=== PATIENT | female | born 1935 | race Caucasian/White ===

== ENCOUNTER 2017-05-10 20:32 | Inpatient (IN) | payer MEDICARE ==
[~2017-05-10] VITALS: Ht 157.5 cm; Wt 90.7 kg
[~2017-05-10 20:32] MED LIST: ALBUTEROL2.5 MG/3 M INH; ALLOPURINOL100 MG; ALLOPURINOL300 MG PO; AMOX TR-K CLV1 EAC1 PO; ASPIRIN BUFFER325 MG PO; ASPIRIN EC325 MG; ATENOLOL100 MG PO; ELIQUIS2.5 MG PO; FLUTICASONE PRO16 GM NAS; GLUCOSAMINE1000 MG; ISOSORBIDE MONO30 MG PO; ISOSORBIDE MONO60 MG PO; LASIX40 MG PO; LISINOPRIL20 MG PO; METOPROLOL SUC100 MG PO; POTASSIUM CHLO10 MEQ; POTASSIUM CHLO20 ME2 PO; PREDNISONE20 MG PO; PROVENTIL HFA6.7 GM INH; SYMBICORT 16010.2 GM PO; TRAZODONE HCL50 MG PO; TRIAMTERENE-HC1 EAC1; VENTOLIN HFA18 GM INH; VITAMIN D5000 UNIT; WARFARIN SODIUM5 MG PO; XARELTO10 MG PO
--- NOTE | 2017-05-11 01:48 | NUR ---
PT ADMITTED TO ROOM 123 FROM ED AT 0110. ALERT AND ORIENTATED. DENIES NAUSEA AT THIS TIME, NOR PAIN. THOUGHT SHE HAD HEART ISSUES, CAME TO ER, TO FIND OUT BUT IT WAS HER GALLBLADDER BOTHERING HER. CALL LIGHT WITHIN REACH.
--- NOTE | 2017-05-11 02:30 | NUR ---
PT IS AWAKE IN BED AND STATES SHE HAS NO PAIN OR NAUSEA AT THIS TIME. SHE IS ON CONTINOUS PULSEOX AND ON ROOM AIR AT THIS TIME. PT IS NPO AND GIVEN ORAL SWABS FOR COMFORT. EVENING MEDICATIONS GIVEN AND FLAGYL STARTED PT MAY NEED OXYGEN TONIGHT, DID NOT WANT TO USE CPAP. PT HAS NO FURTHER REQUESTS AT THIS TIME.
--- NOTE | 2017-05-11 03:26 | NUR ---
PT IV ALARM SOUNDING. CORRECTED, PT REQUESTED TO USE THE BATHROOM. HAD BEEN COUGHING, HAD STRESS INCONT. WEARS A PAD IN HER UNDERWEAR FOR STRESS INCONT. CURRENTLY SITTING ON EDGE OF BED.
--- NOTE | 2017-05-11 06:05 | NUR ---
ASSESSED PT AND HELPED HER TO RESTROOM, URINE SAMPLE OBTAINED AND SUBMITED TO LAB. DR MILLARD ARRIVED AND IS WITH PT AT THIS TIME.
--- NOTE | 2017-05-11 08:30 | NUR ---
PATIENT SITTING UP ON EDGE OF BED WITH DAUGHTER IN ROOM. HANDS AND FACE WASHED. NO OTHER NEEDS AT THIS TIME.
--- NOTE | 2017-05-11 09:00 | NUR ---
PATIENT TO BATHROOM TO SHOWER WITH STAND BY ASSIST. ORAL AND SKIN CARE DONE. LINENS CHANGED. PATIENT SITTING UP IN CHAIR WITH FEET ELEVATED. PATIENT STATES THAT HER LEGS LOOK PUFFY. RN NOTIFIED. CALL BUTTON IN REACH. NO OTHER NEEDS AT THIS TIME.
--- NOTE | 2017-05-11 10:00 | NUR ---
PATIENT REPORTS SWELLING IN ANKLES, NOTED 1+ EDMEMA R>L. DISCUSSED WITH PATIENT CONCERNS WITH MEDICAITONS, AND UPCOMING SURGERY. NOTIFIED DR. GILBERT OF PATIENT'S EDEMA IN [place]. NEW ORDERS TO DECREASE IV FLUIDS TO 75ML/HR. DR. MILLARD CALLED AND NOTIFIED NURSE INR 1.7 UNCHANGED FROM YESTERDAY'S VALUE. NEW PLAN FOR PATIENT TO BE ON CLEAR LIQUIDS, AND TO NOTIFY SURGERY TO ADD PATIENT TO FOLLOW FOR LAP. DASILVA FOR TOMORROW. NOTIFIED SURGERY STAFF AND SPOKE WITH VERONIQUE. CHARGE NURSE, PATIENT, AND DR. GILBERT UPDATED WITH SURGERY PLAN. ORDERED PATIENT CLEAR LIQUID TRAY.
[2017-05-11] MEDS ORDERED: LISINOPRIL40 MG PO (11:55)
[2017-05-11] MEDS ORDERED: MAG-OXIDE400 MG PO (12:00)
--- NOTE | 2017-05-11 12:03 | NUR ---
MED REC COMPLETE WITH [facility] REFILL HISTORY.
--- NOTE | 2017-05-11 13:00 | NUR ---
PATIENT RESTING IN BED WITH EYES CLOSED.
--- NOTE | 2017-05-11 13:30 | NUR ---
PATIENT RESTING IN BED. FAMILY IN R0OM. NO NEEDS AT THIS TIME. CALL BUTTON IN REACH.
--- NOTE | 2017-05-11 16:30 | NUR ---
PATIENT REPORTS NAUSEA, ADMINISTERED 4MG IV ZOFRAN. OXYGEN SATURATION 96% 3L NC. PULSE 92 RR 18. PATIENT STATES " I AM JUST FEELING PRETTY POOR THIS EVENING".
--- NOTE | 2017-05-11 17:00 | NUR ---
RN IN ROOM WITH PATIENT. NO NEEDS AT THIS TIME.
--- NOTE | 2017-05-11 17:30 | NUR ---
ADMINISTERED 5MG OF METOPROL IV, P101. PATIENT RESTING IN BED. INFUSED ON PUMP OVER 10 MINUTES. TOLERATED WELL. DISCUSSED NEED FOR PATIENT GETTING REST. AND SURGERY TOMORROW.
--- NOTE | 2017-05-11 18:04 | NUR ---
PATIENT RESTING IN BED WITH EYES CLOSED. CALL BUTTON IN REACH. FRESH ICE WATER GIVEN. NO OTHER NEEDS AT THIS TIME.
--- NOTE | 2017-05-11 18:45 | NUR ---
PATIENT HAS EXTENSIVE CARDIAC HX. IT WAS FOUND PATIENT DID NOT LOPRESSOR AT HS LAST NIGHT, HAS BEEN TACHY THROUGHOUT DAY. ADMINISTERED IV LOPRESSOR X2 TO CONTROL RATE. PO LOPRESSOR DUE AT HS. PLAN FOR PATIENT TO HAVE LAP BROWN TOMORROW AT NOON. PATIENT AND FAMILY AWARE AND REQUEST TO PRESENT WHEN DR. MILLARD DISCUSSED SURGERY AND OPERATION PLAN. SON IS POA. PATIENT PAIN WELL CONTROLLED. NAUSEA X1, ADMINISTERED ZOFRAN. REQUESTING SLEEPING MEDICAITON FOR TONIGHT.
--- NOTE | 2017-05-11 19:07 | NUR ---
RECEIVED REPORT FROM RN. PATIENT RESTING COMFORTABLY IN BED, BREATHING IS EVEN AND UNLABORED ON 3L O2. DENIES NEEDS AT THIS TIME. FAMILY AT BEDSIDE, CALL LIGHT WITHIN REACH.
--- NOTE | 2017-05-11 20:16 | NUR ---
PATIENT CALLED AND REQUESTED MEDCIATION FOR AN "UPSET STOMACH". PATIENT GIVEN PRN NAUSEA MEDICATION PER ORDER. PATIENT DENIES ANY FURTHER NEEDS. FAMILY AT THE BEDSIDE. NO FURTHER NEEDS AT THIS TIME. CALL LIGHT IN REACH.
--- NOTE | 2017-05-11 20:29 | NUR ---
PATIENT RESTING IN BED, BREATHING APPEARS EASY AND UNLABORED. REPORTS 6/10 PAIN IN ABD. PATIENT STATES "I FEEL LIKE I AM HAVING A HARD TIME BREATHING." RESPIRATIONS ARE EASY AND UNLABORED, PATIENT REFUSES BREATHING TREATMENT. O2 SATURATION IS 97% ON 3L O2. PATIENT ALSO REPORTS NAUSEA. EDUCATED PATIENT ABOUT THE ONSET OF ZOFRAN. WILL ADMINISTER MEDICATIONS ONCE PATIENT IS NO LONGER NAUSEOUS. DENIES NEEDS AT THIS TIME. ASSESSMENT DONE, CALL LIGHT WITHIN REACH.
--- NOTE | 2017-05-11 20:57 | NUR ---
PATIENT CONTINUES TO FEEL SHORT OF BREATH. ASSESSED LUNGS, CRACKLES HEARD. MANUAL BLOOD PRESSURE OF 170/90 NOTED. BREATHING TREATMENT ADMINISTERED PER RT DAI, ADMINISTERED PAIN MEDICATION FOR 6/10 PAIN IN ABD. PATIENT RESTING IN BED AND STATES "I AM FEELING A LITTLE BETTER." PATIENT ALSO PUT ON BIPAP, EDUCATION GIVEN REGARDING THE BENEFITS OF BIPAP. DENIES FURTHER NEEDS AT THIS TIME. CALL LIGHT WITHIN REACH.
--- NOTE | 2017-05-11 22:59 | NUR ---
UPDATED DR. MILLARD REGARDING PATIENT'S FLUID STATUS. EXPRESSED CONCERN ABOUT CRACKLES IN BASES OF LUNGS INCREASED BLOOD PRESSURE OF 170/92, AND PATIENT EXPRESSING INCREASED WORK OF BREATHING. ONE TIME ORDER 20 MG IV LASIX ORDERED, DECREASING FLUIDS TO 50 ML/HR.
--- NOTE | 2017-05-11 23:42 | NUR ---
ADMINISTERED X1 DOSE OF [address] MILLARD. PATIENT RESTING COMFORTABLY IN BED, BREATHING IS EVEN AND UNLABORED. O2 SATURATION IS 98% ON BIPAP. PATIENT STATES "I AM STARTING TO FEEL A LOT BETTER." REPORTS 4/10 PAIN IN ABD AND STATES "MY PAIN IN FINE." DENIES NEEDS AT THIS TIME. CALL LIGHT WITHIN REACH.
--- NOTE | 2017-05-12 00:15 | NUR ---
ASSISTED PATIENT TO BATHROOM WITH SBA. ONCE BACK IN BED, PATIENT RESTING COMFORTABLY, BREATHING IS EVEN AND UNLABORED. DENIES FURTHER NEEDS. CALL LIGHT WITHIN REACH.
--- NOTE | 2017-05-12 01:30 | NUR ---
1 PERSON ASSIST TO THE BATHROOM AND BACK TO BED. BIPAP WAS ADJUSTED BY RT DAI DUE TO PATIENT C/O LEAKING. CALL LIGHT WITHIN REACH.
--- NOTE | 2017-05-12 02:10 | NUR ---
PATIENT RESTING COMFORTABLY IN BED, BREATHING IS EVEN AND UNLABORED. O2 SATURATION IS 97% ON BIPAP, 30% O2. FLACC SCORE OF 0. PATIENT APPEARS COMFORTABLE. CALL LIGHT WITHIN REACH.
--- NOTE | 2017-05-12 03:15 | NUR ---
ASSISTED PATIENT TO BATHROOM WITH SBA. ONCE BACK IN BED, REPORTS 4/10 PAIN IN ABD. PRN PAIN MEDICATION GIVEN PER EMAR. ASSESSMENT DONE, BREATHING IS EVEN AND UNLABORED. LUNGS ARE CLEAR, ABD IS LESS DISTENDED. PATIENT STATES "I FEEL BETTER NOW." DENIES FURTHER NEEDS. CALL LIGHT WITHIN REACH.
--- NOTE | 2017-05-12 04:16 | NUR ---
PATIENT RESTING COMFORTABLY IN BED, BREATHING IS EVEN AND UNLABORED. O2 SATURATION IS 98% ON 3L O2 VIA NC. PATIENT STATES "I HAVE PAIN, BUT I THINK IT IS FROM LAYING IN THIS BED. I DON'T WANT PAIN MEDICATION." DENIES NEEDS AT THIS TIME. CALL LIGHT WITHIN REACH.
--- NOTE | 2017-05-12 05:58 | NUR ---
PATIENT'S NIGHT WAS RELATIVELY UNEVENTFUL. SHE HAS BEEN SLEEPING OFF AND ON THROUGHOUT SHIFT. PATIENT HAD HIGH BLOOD PRESSURES OF 170/92, MD WAS NOTIFIED. CURRENTLY ON 2L O2 VIA NC. ABD TENDER AND DISTENDED, BT ACTIVE. PAIN WELL CONTROLLED. NO ACUTE CHANGES FROM BEGINNING OF SHIFT.
--- NOTE | 2017-05-12 06:54 | NUR ---
PATIENT RESTING COMFORTABLY IN BED, BREATHING IS EVEN AND UNLABORED. DENIES NEEDS AT THIS TIME. DENIES PAIN MEDICATION. CALL LIGHT WITHIN REACH. FAMILY AT BEDSIDE.
--- NOTE | 2017-05-12 07:21 | EKG ---
[facility] [address] [facility] [facility] [address] [place] [address] Signed Atrial fibrillation Left bundle branch block Abnormal ECG When compared with ECG of 20-JUL-2016 01:59, Previous ECG has undetermined rhythm, needs review T wave inversion more evident in Lateral leads Confirmed by JOE HURTADO MD ([id number]) on 05/12/2017 7:21:23 AM Electronically Signed By: JOE HURTADO MD 05/12/17 0721 PATIENT NAME: CHARITY MELISSA FRANCISCO J Electrocardiogram DATE OF : 39 PHYSICIAN: JOE HURTADO MD REPORT #: [id number] REPORT IS CONFIDENTIAL AND NOT TO BE RELEASED WITHOUT AUTHORIZATION
--- NOTE | 2017-05-12 08:22 | NUR ---
PATIENT MOVED OVER TO THE CHAIR AND IS VISITING WITH FAMILY. SHE IS READY FOR SURGERY AND AM MEDICATION GIVEN WITH A SIP OF WATER. VITALS TAKEN AND NEW BAG OF IV FLUID HUNG. TELEMETRY REMAINS ON AT THIS TIME.
--- NOTE | 2017-05-12 09:48 | NUR ---
DOCTOR BRYANT AWARE OF THE INCREASE IN BP THIS AM AT 0800
--- NOTE | 2017-05-12 10:03 | NUR ---
PATIENT PLAYING CARDS WITH FAMILY, SHE IS SITTING UP IN THE CHAIR, READY FOR SURGERY, STRAIT TUBING ON AND JEWELRY REMOVED.
--- NOTE | 2017-05-12 10:36 | NUR ---
PATIENT TO SURGERY AT THIS TIME
--- NOTE | 2017-05-12 14:15 | NUR ---
05/12/17 1415 Cinthya Sylvester 1335 RESP EVEN AND UNLABORED. PT OPENED EYES, AND MUMBLES. 1352 PT MOANS AND REPORTS PAIN IN ABD, PAIN MEDCIAITON GIVEN. 1404 PT REPORTS NO CHANGE IN PAIN, MEDCIAITON GIVEN PER EMAR. 1414 PT TALKING ABOUT FAMILY, UPSET ABOUT HER DAUGHTER. PT REPORTS PAIN HAS DECREASED. 1415 PAIN 12/03.
--- NOTE | 2017-05-12 15:10 | NUR ---
PATEINT BACK FROM SURGERY AT THIS TIME, PATIENT IS ALERT AND ORIENTED AT THIS TIME AND ARRIVED ON 2L OF OXYGEN SATS ARE AT 97%. NEW IV STARTED IN THE RIGHT FOREARM #20 GUAGE, IV IN THE LEFT A/C DC'D TIP INTACT. IV FLUID RUNNING AT 75MLS/HR. DRESSINGS TO LAP SITES X4 ARE CDI WITH TAPE. NO DRAINAGE NOTED AT THIS TIME.
--- NOTE | 2017-05-12 16:09 | NUR ---
PATIENT'S PAIN ELEVATED TO A 8/10 AND BP IS ELEVATED, PATIENT GIVEN 0.5MG OF DILAUTDID AT THIS TIME
--- NOTE | 2017-05-12 16:57 | NUR ---
PATIENT'S VITALS TAKEN, PAIN DOWN TO A 4/10 AT THIS TIME. CLEAR LIQUID TRAY ORDERED FOR DINNER.
--- NOTE | 2017-05-12 17:01 | NUR ---
PATIENT WENT TO SURGERY TODAY FOR A LAP BROWN. SHE HAS 4 LAP SITES THAT ARE CDI WITH GAUZE AND TAPE. SHE HAS BEEN NAUSEATED AND ZOFRAN IV HELPED RESOLVE THE NAUSEA. 1 DOSE OF DILAUDID 0.5MG IV WAS GIVEN AFTER SURGERY FOR ABDOMINAL PAIN. IT MADE HER DIZZY BUT RELEIVED HER PAIN. SHE ORDERED A CLEAR LIQUID DIET FOR DINNER. SHE HAS CRACKLES IN THE BASES OF HER LUNGS AND WEARS CPAP AT NIGHT. SHE IS ON OXYGEN CHRONICALLY AT HOME AND CAME BACK FROM SURGERY ON 2L OF OXYGEN SATS ARE AT 97%
--- NOTE | 2017-05-12 17:30 | NUR ---
RECIEVED REPORT FROM SHAY CARO, ASSUMED CARE OF PT. PT SITTING IN BED AWAKE VISITING WITH FAMILY. DENIES PAIN OR NAUSEA AT THIS TIME. LAP SITES CDI. SATTING 94% ON 2L CHRONIC O2. HAD SOME CLEAR LIQUIDS AND WOULD LIKE TO WAIT TILL BREAKFAST TO START REG DIET. CALL LIGHT WITHIN REACH.
--- NOTE | 2017-05-12 17:40 | NUR ---
PT SMILING AND VISITS WITH FAMILY. WANTING TO GO HOME JOKINGLY SINCE SHE FEELS SO GOOD PER HER.
--- NOTE | 2017-05-12 19:15 | NUR ---
RECEIVED REPORT FROM VANIA SHAW. PATIENT RESTING IN BED COMFORTABLY, BREATHING IS EVEN AND UNLABORED. ASSISTED PATIENT TO COMODE WITH 2PA. PATIENT TOLERATED FAIRLY WELL, DID HAVE INCREASE IN PAIN, RATING PAIN IN ABD 5/10. NOW RESTING AGAIN COMFORTABLY IN BED. O2 SATURATION IS 95% ON 2L O2 VIA NC. DENIES FURTHER NEEDS AT THIS TIME. CALL LIGHT WITHIN REACH, FAMILY AT BEDSIDE.
--- NOTE | 2017-05-12 20:10 | NUR ---
PATIENT RESTING COMFORTABLY IN BED, BREATHING IS EVEN AND UNLABORED. PRN PAIN MEDICATION GIVEN FOR 5/10 PAIN IN ABD. DENIES FURTHER NEEDS. ASSESSMENT DONE, MEDICATIONS GIVEN. VITALS AND I&O DONE. CALL LIGHT WITHIN REACH, FAMILY AT BEDSIDE.
--- NOTE | 2017-05-12 21:43 | NUR ---
PATIENT RESTING COMFORTABLY IN BED, BREATHING IS EVEN AND UNLABORED. DENIES NEEDS AT THIS TIME. REPORTS 5/10 PAIN AND STATES "PAIN IS GETTING DOWN THERE. I FEEL BETTER." O2 IS 98% ON ROOM AIR, PULSE IS 71. CALL LIGHT WITHIN REACH.
--- NOTE | 2017-05-12 22:50 | NUR ---
CALLED DR. MILLARD REGARDING PATIENT'S PAIN CONTROL. PRN NORCO HAD BEEN GIVEN, PATIENT CONTINUES TO HAVE 5/10 PAIN IN ABD. INCREASED DOSE OF NORCO ORDERED. ALSO RECEIVED PRN ORDER FOR BENEDRYL.
--- NOTE | 2017-05-12 23:15 | NUR ---
PATIENT RESTING IN BED, BREATHING IS EVEN AND UNLABORED. O2 SATURATION IS 95% ON 2L O2 VIA NC. PRN NORCO GIVEN PER EMAR. DENIES FURTHER NEEDS AT THIS TIME. CALL LIGHT WITHIN REACH.
--- NOTE | 2017-05-13 00:55 | NUR ---
PATIENT RESTING COMFORTABLY IN BED, BREATHING IS EVEN AND UNLABORED. O2 SATURATION IS 95% ON 2L O2 VIA NC. PATIENT REPORTS THAT PAIN IS NOW 3/10. DENIES NEEDS AT THIS TIME. CALL LIGHT WITHIN REACH.
--- NOTE | 2017-05-13 02:41 | NUR ---
VITALS AND I&OS DONE AND CHARTED. HELPED PT'S RN MAGALY GET HER TO THE BATHROOM WITH HER WALKER, AND BACK TO BED. HOOKED UP HER SCD'S AND PULSE OX AGAIN. I SAT WITH HER WHILE MAGALY WENT TO GET HER MEDS. BEDSIDE TABLE AND CALL LIGHT WITHIN REACH.
--- NOTE | 2017-05-13 02:43 | NUR ---
PATIENT ASSISTED TO BATHROOM, TOLERATED AMBULATION WELL WITHOUT SIGNIFICANT INCREASE IN PAIN. NOW RESTING COMFORTABLY IN BED, BREATHING EVEN AND UNLABORED. PRN PAIN MEDICATION GIVEN PER EMAR, ADMINISTERED PRN ZOFRAN AND BENEDRYL. DENIES FURTHER NEEDS AT THIS TIME. CALL LIGHT WITHIN REACH, ASSESSMENT DONE.
--- NOTE | 2017-05-13 04:50 | NUR ---
PATIENT'S NIGHT WAS RELATIVELY UNEVENTFUL. SHE HAS BEEN RESTING OFF AND ON THROUGHOUT SHIFT. VSS, URINE OUTPUT QS, THOUGH URINE IS CONCENTRATED. ABD LAP SITES ARE C/D/I, PAIN HAS BEEN WELL CONTROLLED AFTER INCREASE IN NORCO DOSE. ZOFRAN GIVEN X1 FOR NAUSEA, PATIENT HAD ADEQUATE RELIEF. BT ACTIVE. AMBULATING WELL, 1PA/FWW. TOLERATING ADVANCING OF DIET. HAS IV FLUIDS. NO ACUTE CHANGES.
--- NOTE | 2017-05-13 05:43 | NUR ---
PATIENT RESTING COMFORTABLY IN BED, BREATHING IS EVEN AND UNLABORED. DENIES NEEDS AT THIS TIME. REPORTS 3/10 PAIN IN ABD. VITALS/I&O DONE. CALL LIGHT WITHIN REACH.
--- NOTE | 2017-05-13 06:21 | OR ---
[facility] [address], [place] [address] Signed DATE OF OPERATION: 05/12/2017 SURGEON: Saundra Booth MD PREOPERATIVE DIAGNOSIS: [id number] cholecystitis with cholelithiasis. POSTOPERATIVE DIAGNOSIS: Udmza-[id number] cholecystitis with cholelithiasis. PROCEDURE: Laparoscopic cholecystectomy with intraoperative cholangiogram (prolonged and difficult). ESTIMATED BLOOD LOSS: Minimal. FINDINGS: Chio had a mildly thickened gallbladder wall, except it was extremely friable. In fact, it came apart during the procedure with gentle traction. In addition, she had 2 large stones in the gallbladder well over 1.5 cm in diameter. There were multiple smaller stones and copious amounts of thick sludge. The intraoperative cholangiogram showed contrast going through the ampulla of Vater after we gave 1 mg of glucagon. There may have been just a tiny bit of sludge in her distal common bile duct. I do not think it is enough. It will cause issues. It should pass without difficulty. She had fbrzz-sm-[id number] inflammation and she had surrounding omentum adherent to the gallbladder liver and the triangle of Calot. Because of all these factors, it took an additional 30 to 40 minutes to complete her surgery. Taking altogether, her procedure was prolonged and difficult certainly over standard gallbladder surgery. INDICATIONS: Chio is an 82-year-old female with significant cardiomyopathy, hypertension, COPD, atrial fibrillation, obstructive sleep apnea requiring CPAP. She still lives alone and drives herself around town, although she has her daughter close by. Two days prior to admission, she had significant upper abdominal pain and distention. She took 2 cups of soda water and had made no difference. She ended up in the emergency room for evaluation. Blood pressure was elevated and her abdomen was distended and tender mainly in the right upper quadrant, but some in the mid epigastric area as well. She was a little dehydrated with an elevated urine specific gravity. Her white count was just below normal, but her BUN and creatinine were slightly elevated. Liver function tests were fine, except the AST, was slightly up at 43. INR was a little up at 1.7 from her Electronically Signed By: SAUNDRA BOOTH MD 05/13/17 0621 PATIENT NAME: CHIO MELISSA OPERATIVE REPORT DATE OF : 39 PHYSICIAN: SAUNDRA BOOTH MD REPORT #: [id number] REPORT IS CONFIDENTIAL AND NOT TO BE RELEASED WITHOUT AUTHORIZATION [facility] [address], [place] [address] Signed Coumadin. Of course, the chest x-ray showed cardiomegaly. Lungs were fine. The ultrasound of the right upper quadrant showed the gallbladder wall was slightly thickened at 3 to 4 mm with multiple stones and some trace pericholecystic fluid. Common bile duct was just a little bit dilated at 8 mm. Also, there was some concern that she might have some bacteria in the urine. Therefore, I was asked to admit her as a general surgeon on-call. She was admitted, hydrated, and started on Levaquin and Flagyl. We had our Internal Medicine Service come and see her. Fortunately, she just completed a stress test a few weeks ago and her echocardiogram just a few days ago. The EKG showed no ischemia during the stress test and her images were well matched on the stress test. She did have some areas of hypokinesia and dyskinesia. For reasons that are not clear, the ejection fraction seemed low around 24% during the stress test. However, the echocardiogram showed her left ventricular ejection fraction around 50% to 55%. That is more consistent with her activity levels. Once we had all these issues cleared and she was hydrated, we decided we would bring her down for surgery. Her liver function test had increased a little bit with a total bilirubin up at 2. We gave her some vitamin K and her INR came down to 1.3. I had a long discussion with Chio, her 2 daughters, and her son-in-law. We discussed the location and function of her gallbladder. We discussed laparoscopic versus open cholecystectomy. They understand the expected intraoperative and postoperative course. There is risk of surgery including, but not limited to bleeding, infection, scarring, change in contour of the skin, damage to the bowel, damage to the main bile duct, incisional hernias, and other unforeseen comorbidities such as stroke, pneumonia, heart attack, blood clots, etc. They had expressed understanding and wished to proceed. PROCEDURE NOTE: Chio was taken into our operating room and placed in the supine position under general endotracheal tube anesthesia. She was on preoperative antibiotics along with her SCDs on her lower extremities. We had held her subcutaneous heparin because of her Coumadin and elevated INR. She was then prepped and draped in the usual sterile fashion. All trocars were placed in their usual positions under direct visualization of camera without difficulty. Her gallbladder was grasped and elevated in the right upper quadrant. The findings were as above. It took some additional time to carefully dissect the omentum down off the liver and her gallbladder wall. Around the neck of the gallbladder, she had the 2 large stones and sure enough that area was quite friable and came apart quite readily with gentle traction on the gallbladder. We laid those 2 stones next to the liver and suctioned out the rest with our suction stitch cleaner. After this, we carefully dissected out the triangle of Calot. The clip had been placed on the cystic artery and it was divided. The intraoperative cholangiocatheter was inserted into the neck of the gallbladder down into the cystic duct. The intraoperative cholangiogram was then performed as above. After this, the cystic duct stump was secured with a PDS Endoloop and 2 clips were placed on the cystic duct stump to javi its location. The gallbladder was then very carefully dissected free from the gallbladder Electronically Signed By: SAUNDRA BOOTH MD 05/13/17 0621 PATIENT NAME: CHIO MELISSA OPERATIVE REPORT DATE OF : 39 PHYSICIAN: SAUNDRA BOOTH MD REPORT #: [id number] REPORT IS CONFIDENTIAL AND NOT TO BE RELEASED WITHOUT AUTHORIZATION [facility] [address], [place] [address] Signed fossa with the help of the cautery and placed into an EndoCatch bag. She had the 2 large stones and we used EndoCatch bag for each stone. We placed stones individually into each EndoCatch bag. Consequently, we have to use 3 EndoCatch bags for the procedure. After this, we copiously irrigated the gallbladder fossa underneath the liver and up over into the dome of the liver. It was irrigated out until it was quite clean. All stones were removed including the smaller stones. Multiple pictures were taken throughout for photodocumentation. After this, we used our laparoscopic suturing device to pass 0 Vicryl suture on either side of the fascia of the subxiphoid trocar site. This was tied down to close this fascia primarily. After this, all the gas was allowed to escape and all the trocars were removed along with the 2 large gallstones and the gallbladder itself. The gallbladder was opened on the back table by our circulating nurse and a picture was taken for photodocumentation. After this, the fascia of the supraumbilical trocar site was closed with interrupted [id number] and simple 0 Vicryl sutures. Local anesthetic was copiously injected into all trocar sites. Each trocar site was then irrigated and suctioned out until clear. The skin and dermis of each trocar site were closed with interrupted 3-0 subcuticular Monocryl sutures. Dry gauze and tape were then applied to all incisions. Chio was awakened from her anesthesia, extubated in the OR and taken to recovery room in stable condition. Saundra Booth MD ALB/MODL /[id number] cc: MD Pati Calderon MD Andrew L Bower, MD Electronically Signed By: SAUNDRA BOOTH MD 05/13/17 0621 PATIENT NAME: CHIO MELISSA FRANCISCO J OPERATIVE REPORT DATE OF : 39 PHYSICIAN: SAUNDRA BOOTH MD REPORT #: [id number] REPORT IS CONFIDENTIAL AND NOT TO BE RELEASED WITHOUT AUTHORIZATION
[2017-05-13] MEDS ORDERED: NORCO 10-325 T1 EACH PO (08:06)
--- NOTE | 2017-05-13 08:38 | NUR ---
PHARMACY IN THE ROOM TO SPEAK WITH THE PATIENT AND DAUGHTER REGARDING D/C MEDICATION AT THIS TIME. PATIENT IV DC'D AT THIS TIME AND AM MEDICATION GIVEN SHE IS ALERT AND ORIENTED AND REMAINS ON 2L OF OXYGEN WHICH IS CHRONIC FOR HER AT HOME.
--- NOTE | 2017-05-13 08:53 | NUR ---
PATIENT GIVEN D/C INSTRUCTIONS, QUESTIONS ANSWERED AND DRESSINGS TO ABDOMEN DC'D AT THIS TIME.
--- NOTE | 2017-05-14 13:58 | DS ---
[facility] [address], [place] [address] Signed ADMISSION DATE: 05/11/2017 DISCHARGE DATE: 05/13/2017 FINAL DIAGNOSES: 1. Acute on chronic cholecystitis with cholelithiasis. 2. Possible choledocholithiasis/sludge. PROCEDURES: 1. Laparoscopic cholecystectomy with intraoperative cholangiogram. 2. Chest x-ray. 3. Ultrasound of abdomen. HISTORY OF PRESENT ILLNESS: Chio is an 82-year-old female, who still lives alone and drives herself around town. Her daughter is available to her as well. She is a Mandaen and therefore declines blood products including fresh frozen plasma. She developed 2 days of upper abdominal distention without relief. She took two cups of soda water and that made no difference. She came to emergency room for evaluation. She was hypertensive from not taking her blood pressure pills. She was tender in the upper abdomen. White count was normal at 10.7. INR was a little up at 1.7. Liver function tests were fine except the AST was 43. Ultrasound was performed. The gallbladder wall was a little thick at 3-4 mm with multiple stones, some trace pericholecystic fluid, and common bile duct was borderline dilated at 8 mm. She was therefore admitted to my service. In addition, her initial UA showed bacteria, so she was started on Levaquin and Flagyl to cover not only the gallbladder, but the urinary tract as well. We also had our Internal Medicine Service to see her. HOSPITAL COURSE: Chio was admitted as above and we found her recent stress test and echocardiogram. Her left ventricular ejection fraction runs 50% to 55%. Overall, in the meantime, the repeat urinalysis showed no bacteria. We gave her vitamin K and her INR came down to 1.3. But, her liver function tests were increasing. Therefore, we took her to surgery later that same day. She underwent her prolonged and difficult laparoscopic cholecystectomy with intraoperative cholangiogram. Her gallbladder wall was quite friable. It added another 30-40 minutes to the case. Initially, we did not get contrast to flow through her distal common bile duct. We thought there may or may not be some sludge in that area. We gave a milligram of glucagon and then the contrast went through nicely. We kept her overnight and this morning, she is doing fine. Her hemoglobin has been stable at 12.6. INR still at 1.3. White count is normal. Her liver function tests are all coming down nicely. Her total bilirubin is down to 1.9. We did have to increase her hydrocodone from 5 mg to 10 mg to control her pain. She is Electronically Signed By: SAUNDRA BOOTH MD 05/14/17 1358 PATIENT NAME: CHIO MELISSA DISCHARGE SUMMARY DATE OF : 39 PHYSICIAN: SAUNDRA BOOTH MD REPORT #: [id number] REPORT IS CONFIDENTIAL AND NOT TO BE RELEASED WITHOUT AUTHORIZATION [address] [address] Signed a little bloated in the upper abdomen, but otherwise doing fine. At this point, we will be discharging her to home. DISCHARGE PLANS AND MEDICATIONS: Chio will be discharged to home with a prescription for Aurora 10/325, 1 to 2 tablets p.o. q.4-6 hours p.r.n. pain, we will dispense 50 tablets with no refills. She will resume her Coumadin on postoperative day #5. She will resume all her other chronic p.o. medications today. She can start off a light diet and advance that as tolerated. She is welcome to perform her activities of daily living including walking up and down stairs and showering bathing as usual. All her dressings have been removed. We have asked her not to lift over 20 pounds. We will see her back in the office in about a week to 10 days. If she has trouble in the meantime, she is to call my office immediately. She has expressed understanding and agrees above plan. Saundra Booth MD [facility]/MODL /[id number] cc: Saundra Booth MD [facility] Alem Ardon MD Electronically Signed By: SAUNDRA BOOTH MD 05/14/17 1358 PATIENT NAME: CHIO MELISSA DISCHARGE SUMMARY DATE OF : 39 PHYSICIAN: SAUNDRA BOOTH MD REPORT #: [id number] REPORT IS CONFIDENTIAL AND NOT TO BE RELEASED WITHOUT AUTHORIZATION
[2017-06-29] MEDS ORDERED: PULMICORT FLE180 MCG INH (09:24)
[2017-06-29] MEDS ORDERED: ANORO ELLIPTA1 EACH INH (09:24)
[2017-06-29] MEDS ORDERED: FLUTICASONE PRO16 GM NAS (09:28)
[2017-08-24] MEDS ORDERED: BUDESONIDE0.5 MG/2 M INH (10:12)
[2017-08-24] MEDS ORDERED: BROVANA15 MCG/2 M INH (10:13)
== END 2017-05-13 09:50 | disposition home or self-care (01) | DRG 418 ==
LOC: ED 20:32 → MS 05-11 00:47
PROVIDERS: ADMIT Colon & Rectal Surgery
PROC: 0FT44ZZ Resection of Gallbladder, Percutaneous Endoscopic Approach (ICD-10-PCS; principal; 2017-05-12 12:30)
PROC: BF00YZZ Plain Radiography of Bile Ducts using Other Contrast (ICD-10-PCS; principal; 2017-05-12 12:30)
DX: K80.12 Calculus of gallbladder with acute and chronic cholecystitis without obstruction (principal); I42.9 Cardiomyopathy, unspecified; J44.9 Chronic obstructive pulmonary disease, unspecified; I10 Essential (primary) hypertension; I48.91 Unspecified atrial fibrillation; Z87.891 Personal history of nicotine dependence; Z99.81 Dependence on supplemental oxygen
CPT/HCPCS: 00790; 36415; 71045; 74300; 76705; 80053; 81001; 83690; 83735; 84100; 84484; 85025; 85610; 85730; 88304; 93005; 93010; 94640; 94660; 94762; J0131; J1610; J1644; J1956; J2270; J2405; J2704; J3010; J3430; J7042; J7120; Q9967

== ENCOUNTER 2017-06-05 12:57 | Emergency (ER) | payer MEDICARE ==
[~2017-06-05] VITALS: Ht 157.5 cm; Wt 86.2 kg
[~2017-06-05 12:57] MED LIST changes: +LISINOPRIL40 MG PO; +MAG-OXIDE400 MG PO; +NORCO 10-325 T1 EACH PO
[2017-06-05] MEDS ORDERED: ZITHROMAX1 GM PO (15:16)
[2017-06-05] MEDS ORDERED: PREDNISONE20 MG PO (15:16)
--- NOTE | 2017-06-05 17:59 | EKG ---
[facility] [address] [facility] [place] [address] Signed Atrial fibrillation with premature ventricular or aberrantly conducted complexes Left bundle branch block Abnormal ECG When compared with ECG of 10-MAY-2017 21:03, T wave inversion less evident in Lateral leads Confirmed by GLENROY TURNER MD ([id number]) on 06/05/2017 5:59:18 PM Electronically Signed By: GLENROY TURNER MD 06/05/17 1759 PATIENT NAME: CHARITY MELISSA FRANCISCO J Electrocardiogram DATE OF : 39 PHYSICIAN: GLENROY TURNER MD REPORT #: [id number] REPORT IS CONFIDENTIAL AND NOT TO BE RELEASED WITHOUT AUTHORIZATION
[2017-06-29] MEDS ORDERED: PULMICORT FLE180 MCG INH (09:24)
[2017-06-29] MEDS ORDERED: ANORO ELLIPTA1 EACH INH (09:24)
[2017-06-29] MEDS ORDERED: FLUTICASONE PRO16 GM NAS (09:28)
[2017-08-24] MEDS ORDERED: BUDESONIDE0.5 MG/2 M INH (10:12)
[2017-08-24] MEDS ORDERED: BROVANA15 MCG/2 M INH (10:13)
== END 2017-06-05 15:43 | disposition home or self-care (01) ==
LOC: ED 12:57
DX: J44.1 Chronic obstructive pulmonary disease with (acute) exacerbation (principal); I10 Essential (primary) hypertension; I48.91 Unspecified atrial fibrillation; I50.9 Heart failure, unspecified; Z87.891 Personal history of nicotine dependence; Z90.710 Acquired absence of both cervix and uterus; Z90.49 Acquired absence of other specified parts of digestive tract; Z91.09 Other allergy status, other than to drugs and biological substances; Z88.8 Allergy status to other drugs, medicaments and biological substances; Z79.899 Other long term (current) drug therapy; Z79.01 Long term (current) use of anticoagulants
CPT/HCPCS: 71045; 80053; 83880; 85025; 85610; 93005; 93010; 94640; 96374; 99284; J2930

== ENCOUNTER 2017-06-06 03:33 | Inpatient (IN) | payer MEDICARE ==
[~2017-06-06] VITALS: Ht 157.5 cm; Wt 84.4 kg
[~2017-06-06 03:33] MED LIST changes: +ZITHROMAX1 GM PO
--- NOTE | 2017-06-06 07:09 | NUR ---
82YR OLD WOMAN ADMITTED FROM ER VIA STRETCHER TO ROOM 109 ACCOMPANIED BY DAUGHTER. PT IS ALERT AND ORIENTED, ABLE TO STAND AND TRANSFER TO BED WITH ONE PERSON ASSIST. ORIENTED TO ROOM AND CALL LIGHT. ORDERS NOTED.
--- NOTE | 2017-06-06 08:00 | NUR ---
RECIEVED REPORT FROM NIGHTSHIFT RN. PT IN BED, DAUGHTER AT BEDSIDE. 2L NC IN PLACE. SL FIELD START IN LEFT AC. UP TO BATHROOM. REPORTS NO PAIN AT THIS TIME CALL IGHT WITHIN REACH. REPORTS NO OTHER NEEDS AT THIS TIME.
--- NOTE | 2017-06-06 10:21 | NUR ---
MORNIGN MEDICATIONS GIVEN. MORNING ASSESSMENT COMPLETE. PT REPORTS FEELING SOB. PT O2 SAT IS 98% ON 2 L NC. LUNGS SOUND DEMINISHED. REASSURED PT SHES GETTING ENOUGH O2. HEART MONITOR IN PLACE. IRREGULAR HR. CALL IGHT WITHIN REACH. REPORTS NO OTHER NEEDS AT THIS TIME.
--- NOTE | 2017-06-06 10:46 | NUR ---
PT STILL SOB. RT CALLED FOR ASSESSMENT AND JUDY TREATMENT. WILL CONTINUE TO MONITOR. CALL LIGHT WITHIN REACH. HOB ELEVATED.
--- NOTE | 2017-06-06 11:07 | NUR ---
RECHECKED PT AFTER BREATHING TREATMENT WITH RT. PT REPORTS HER BREATHING HAS IMPROVED AND SHE NO LOONGER FEELS SOB. DAUGHTER AT BEDSIDE. NO OTHER NEEDS AT THIS TIME. CALL [facility] WITHIN REACH.
--- NOTE | 2017-06-06 12:54 | NUR ---
PT REPORTED PAIN IN THROAT FROM COUGHING. INFORMED DR TURNER. NEW ORDERS RECIEVED. NO OTHER NEEDS AT THIS TIME.
--- NOTE | 2017-06-06 13:55 | NUR ---
PT UP IN BED. THROAT LOSANGE GIVEN. PT UP TO BATHROOM. TOLLERATES OK, GETS SOB WHEN ACTIVE. 2L O2 NC IN PLACE. REPORTS NO OTHER NEEDS AT THIS TIME. CALL LIGHT WITHIN REACH.
--- NOTE | 2017-06-06 14:38 | NUR ---
pt requested breathing treatment. pt had a hacking cough, was sob and had dim lung sounds. talked to dr shaw. new ordered recieved.
--- NOTE | 2017-06-06 15:20 | NUR ---
PT REQUESTED VINEGAR, SALT AND HOT WATER TO GARGLE FOR THROAT PAIN. COUGH IS STILL HACKY AND DRY. AFTERNOON ASSESSMENT COMPLETED WITH PT LUNG SOUNDS BEING WHEEZY AND TIGHT, IN AND OUT. BREATHING IS STILL LABORED. CAUGHT PT IN THE BATHROOM WTIHOUT ASKING FOR ASSISTANCE. EDUCATED ON FALL PREVENTION AND SAFTEY. CALL POWER WITH I REACH AND TOLD HER ABOUT BED ALARM IF SHE DOESN'T CALL FOR ASSISTANCE.
--- NOTE | 2017-06-06 16:41 | NUR ---
DR TURNER CALLED FOR NEW ORDERS. PT B/P WAS 170/90 HR 101. PT IS IN TRIPOD POSITION TO BREATH. DANUGHTER AT BEDSIDE. WILL CONTINUE TO MONITOR. CALL LGIHT WITHIN REACH
--- NOTE | 2017-06-06 17:36 | NUR ---
PT ON BIPAP NOW. SOLUMEDROL GIVEN. PT REPORTS THAT IT IS EASIER TO BREATH NOW. WILL CONTINUE TO MONITOR. CALL LIGHT WITHIN REACH.
--- NOTE | 2017-06-06 18:06 | NUR ---
PT WAS ADMITTED THIS MORNING. HAS NOT SLEPT LAST NIGHT OR TODAY. PUT ON BIPAP MACHINE COPD EXACERBATION. STEROIDS ORDERED. PT ON 2L O2 NC. AND 3L BIPAP. CARDIAC DIET. LEFT ARM FIELD START NEEDSD CHANGED. DAILY WEIGHTS. LABS IN THE AM. SBA WITH 4 WHEEL WALKER.
--- NOTE | 2017-06-06 19:23 | EKG ---
[facility] [address] [place] [address] Signed Atrial fibrillation with a competing junctional pacemaker Left bundle branch block Abnormal ECG When compared with ECG of 05-JUN-2017 13:31, No significant change was found Confirmed by GLENROY TURNER MD ([id number]) on 06/06/2017 7:23:18 PM Electronically Signed By: GLENROY TURNER MD 06/06/171922 PATIENT NAME: CHARITY MELISSA FRANCISCO J Electrocardiogram DATE OF : 39 PHYSICIAN: GLENROY TURNER MD REPORT #: [id number] REPORT IS CONFIDENTIAL AND NOT TO BE RELEASED WITHOUT AUTHORIZATION
--- NOTE | 2017-06-06 20:21 | NUR ---
VITALS AND I&OS DONE AND CHARTED. BEDSIDE TABLE AND CALL LIGHT WITHIN REACH. EMPTIED GARBAGE.
--- NOTE | 2017-06-06 21:10 | NUR ---
PT UP TO BATHROOM TO VOID, BEFORE AMBULATING BIPAP REPLACED WITH NC. PT AMBULATES WITH FWW WELL, BUT GETS SOB WITH EXERTION. PT BACK IN BED, BIPAP IN PLACE, SAT AT BEDSIDE IN TRIPOD POSITION TO RECOVER FROM SOB. PTS O2 SAT IS 98% AT THIS TIME. TOOK A SEVERAL MINUTES TO RECOVER FROM SOB. NOW LAYING IN BED. NO DISTRESS. BIPAP IN PLACE. HR 89. PT ALERT AND ORIENTED X4. PLEASENT DEMEANOR. COOPERATIVE. CALL LIGHT IN REACH.
--- NOTE | 2017-06-06 21:54 | NUR ---
LET HER VANIA HAQUE KNOW OF LOW URINE OUTPUT.
--- NOTE | 2017-06-06 21:56 | NUR ---
notified dr shaw of pt's low urine output. no new orders at this time. monitor.
--- NOTE | 2017-06-06 22:58 | NUR ---
PT APPEARS TO BE SLEEPING. RR WNL AND UNLABORED.
--- NOTE | 2017-06-06 23:40 | NUR ---
pt up to chair per request. call light in reach. no further needs.
--- NOTE | 2017-06-07 01:25 | NUR ---
pt appears to be sleeping, sitting up in chair. hr 79. lights and tv off in room.
--- NOTE | 2017-06-07 02:24 | NUR ---
PLACED O2 ON VIA NC, PER PT REQUEST, STATES "I JUST NEED A LITTLE BREATHER FROM THE BIPAP FOR NOW, ILL PUT IT BACK ON IN A BIT." PT TOLERATING NC WELL. SITTING UP IN CHAIR. VITALS TAKEN. GAVE FRESH ICE WATER. CALL LIGHT IN REACH. NO FURTHER NEEDS.
--- NOTE | 2017-06-07 03:35 | NUR ---
pt up to bsc. very sob. cold sweats. rt in giving neb tx per pt request. pt sat's in upper 90's on 3l via nc. tachypneic, rr 28 and labored. rn staying with pt to monitor closely.
--- NOTE | 2017-06-07 03:40 | NUR ---
CALL PLACED TO DR TURNER, PT INCREASING ANXIETY, C/O NAUSEA, SKIN COOL AND CLAMMY, BP ELEVATED, RECIEVED ORDER TO GIVE NITRO 0.4MG SL NOW, NOT NECESSARY TO DO EKG.
--- NOTE | 2017-06-07 03:54 | NUR ---
NITRO WAS GIVEN, BP NOW 142/90, PT STATES SHE IS "FEELING BETTER". NO LONGER PALE, STATES NAUSEA IS GONE. CALL PLACED TO DAUGHTER PER PT REQUEST, MSG LEFT. REMAINING IN ROOM WITH PT.
--- NOTE | 2017-06-07 04:00 | NUR ---
B/P 135/72, P 84, PT IS RESTING COMFORTABLY IN RECLINER. DENIES ANY DISCOMFORT AT THIS TIME. CALL PLACED TO DR TURNER, RECIEVED INSTRUCTION TO GIVE ISOSORBIDE SCHEDULED FOR 0900 NOW.
--- NOTE | 2017-06-07 04:15 | NUR ---
PT REMAINS SITTING UP IN CHAIR. REPORTS THAT SHE IS "FEELING BETTER," STATES "I DONT FEEL LIKE I AM GOING TO NOW." PT IN BETTER SPIRITS, SMILING, CARRYING ON CONVERSATION. NO NAUSEA. NO DIZZINESS. NO COLD SWEATS. PT'S WORK OF BREATHING HAS LESSONED, RR 24 AND LESS LABORED. PT'S DAUGHTER CALLED, LEFT MESSAGE ON PHONE NUMBER PT GAVE RN. CALL LIGHT IN REACH. PT OKAY WITH RN LEAVING ROOM AT THIS TIME. CALL LIGHT IN REACH.
--- NOTE | 2017-06-07 04:33 | NUR ---
PT DAUGHTER JONATHAN IN ROOM. PT STATES "IM STILL FEELING OKAY NOW." GAVE FRESH WATER. CALL LIGHT IN REACH.
--- NOTE | 2017-06-07 06:35 | NUR ---
GAVE CEPACOL LOZENGE PER PT REQUEST. DAUGHTER, JONATHAN AT BEDSIDE. PT SITTING UP IN CHAIR. NO FURTHER NEEDS AT THIS TIME. CALL LIGHT IN REACH.
--- NOTE | 2017-06-07 07:45 | NUR ---
recieved report. pt up in chair, 3l o2 in place. family at bedside. reports no pain at this time. reports no needs. rr wnl. call light within reach
--- NOTE | 2017-06-07 08:46 | NUR ---
pt sitting up in recliner with daughters and son in law at bedside. took scheduled medication as ordered. pt wondering when hospitalist will see her today. has to use the bathroom now. will get her on the BSC.
--- NOTE | 2017-06-07 08:49 | NUR ---
Heart Failure Education: Patient sitting in chair visiting with family. States had poor sleep. Does verbalize that she is here with heart failure symptoms and "fluid". Plan: Reinforce HF daily care, ensure follow up appointment made, contact Dr Ardon on when to resume OP cardiac rehab.
--- NOTE | 2017-06-07 10:00 | NUR ---
PT UP IN CHAIR. DAUGHTERS AT BEDSIDE. PT IS GOOD MOOD. LAUGHING A LOT. 3L O2 IN PLACE. PT SEEMS TO BE WORKING LESS TO BREATHE. CALL LGIHT WITHIN REACH. REPORTS NO PAIN AND NO NEEDS AT THIS TIME.
--- NOTE | 2017-06-07 10:15 | NUR ---
PATIENT SITTING UP IN CHAIR. ORAL CARE DONE. HANDS AND FACE WASHED. PATIENT TOO SOB TO SHOWER. PATIENT AGREED TO HAVE ASSISTANCE NEXT TIME SHE'S UP TO BSC WITH BATH AND CLEAN GOWN.
[2017-06-07] MEDS ORDERED: ZITHROMAX250 MG PO (10:39)
[2017-06-07] MEDS ORDERED: PREDNISONE20 MG PO (10:42)
--- NOTE | 2017-06-07 11:34 | NUR ---
Medications reconciled with pharmacy records, last month's discharge orders and patient interview
--- NOTE | 2017-06-07 14:35 | NUR ---
pt, family and rt reported that the pt was unable to handle cpap in place. she was panicing when the mask was on. she was then crying and had increased respirations afterwards. stating, "i dont know why i'm feeling this way, im being a big [place]" reassured the pt and she has since calmed down. afternoon assessment completed. lungs sound tight with a few wheezes. bowel tones hypoactive. heart is irregular.
--- NOTE | 2017-06-07 15:00 | NUR ---
TALKED WITH THE PT AND HER DAUGHTERS ABOUT HAVING A CHW MEET WITH THEM AND TO FOLLOW WITH HER MOM WHEN SHE IS DC'D. THEY THOUGHT THIS WOULD BE A GOOD IDEA. LIST OF CAREGIVERS GIVEN TO THE DAUGHTERS PER THEIR REQUEST. THEY FEEL MOM NEEDS MORE HELP AT HOME.
--- NOTE | 2017-06-07 16:02 | NUR ---
iv is leaking. will change
--- NOTE | 2017-06-07 16:07 | NUR ---
TALKED TO DR TURNER ABOUT PT ANXIETY AND PROBLEMS BREATHING. NEW ORDERS IN.
--- NOTE | 2017-06-07 16:22 | NUR ---
PT AWAKE IN CHAIR. ASSISTED PT TO THE BR. PT STATED SHE WAS HAVING TROUBLE BREATHING. LET HER NURSES NEMO AND ANDRES KNOW.
--- NOTE | 2017-06-07 18:05 | NUR ---
PT REPORTS RELIEF FROM MORPHINE. STATED SHE NAPPED SOME. UP TO BSC. PT HAS INCREASED RESPIRATIONS AND IS USING ABDOMINAL MUSCLES TO BREATH, REPORTS THAT HER STOMACH FEELS TIGHT. EDUCATED ON BREATHING AND COPD.
--- NOTE | 2017-06-07 18:08 | NUR ---
SBA WTIH FWW. PT HAD PANIC ATTACK TODAY WITH CPAP MACHINE ON. DR TURNER ORDERED MORPHNE. PT IS USING ABDOMINAL MUSCLES TO BREATH. MORPHINE GAVE SOME RELIEF. DECREASED APPETITE. GAVE ENSURES TODAY. ONLY A LITTLE REST. HAS MELETONIN FOR TONIGHT. ON 3L NC. PT DOES NOT WANT TO TRY BIPAP AGAIN AFTER ANXIETY ATTACK. SHE HAS CALMED DOWN LATER IN THE DAY.SOLUMEDROL ORDERED. NYSTATIN FOR THROAT AND GI COCKTAIL. ABDOMIN IS SORE FROM BREATHING EFFORTS. NEBS SCHEDULED AND PRN. LAST ONE DIDNT HELP MUCH. CARDIAC DIET. DAILY WEIGHTS.
--- NOTE | 2017-06-07 18:51 | NUR ---
PT REPORTS INCREASE IN ANXIETY. REQUESTED MORPHINE.
--- NOTE | 2017-06-07 21:24 | NUR ---
ROUNDED CHARGE. PATIENT SITTING IN RECLINER VISITING WITH SON. PATIENT HAS NO COMPLAINTS, COMMENTS, QUESTIONS, OR CONCERNS AT THIS TIME. CALL LIGHT IN REACH.
--- NOTE | 2017-06-07 21:58 | NUR ---
PT SITTING UP IN CHAIR WHEN ENTERIN ROOM. VISITING WITH DAUGHTER AND SON. PT IN GOOD SPIRITS AT THE MOMENT. REPORTS FEELING BETTER THAN EARLIER TODAY. PT READY TO GET INTO BED. ASSISTED PT TRANSFER FROM CHAIR TO BED, SHE DID WELL USING FWW. PT STEADY ON FEET, BUT DOES GET VERY SOB, AND SHE TOOK A FEW MINUTES TO RECOVER. PT HAS FRESH ICE WATER. CALL LIGHT IN REACH. NO FURTHER NEEDS AT THIS TIME.
--- NOTE | 2017-06-07 22:37 | NUR ---
PT SITTING AT BEDSIDE, REPORTS FEELING SHORT OF BREATH. PT RR EVEN BUT LABORED AT THIS TIME. GAVE MORPHINE 1MG IV FOR SOB. DR TURNER NOTIFED THAT PT HAS BEEN REQUIRING MORPHINE 1MG IV APPROXIMATELY Q4 HOURS, NO NEW ORDERS RECIEVED.
--- NOTE | 2017-06-08 00:14 | NUR ---
PT LAYING ON HER RIGHT SIDE IN BED, APPEARS TO BE SLEEPING. HR 79. LIGHTS AND TV OFF IN ROOM.
--- NOTE | 2017-06-08 02:15 | NUR ---
pt awake when entering room. pt laying in bed. reports feeling sob, gave scheduled solumedrol and morphine 1mg iv for sob. respiratory also in with pt giving neb tx. pt has no further needs. call light in reach.
--- NOTE | 2017-06-08 03:25 | NUR ---
pt appears to be sleeping. lights and tv off in room. hr 70.
--- NOTE | 2017-06-08 04:37 | NUR ---
PT SLEPT BETTER THAN THE NIGHT BEFORE LAST NIGHT. MORPHINE GIVEN X2 FOR SOB. NEBS GIVEN. 3L VIA NC. PT ALERT AND ORIENTED X4. CALLS APPROPRIATLY. PLEASENT AND FRIENDLY. SOLUMEDROL. PO ANTIBIOTICS. DAILY WEIGHT.
--- NOTE | 2017-06-08 06:45 | NUR ---
pt sitting at side of bed. complains of sob. rt in to give neb tx. morphine 1mg iv given for sob. daughter, theo at bedside. call light in reach. will monitor closely. hr 81.
--- NOTE | 2017-06-08 07:25 | NUR ---
RECIEVED REPORT FROM PAN DEVULCANIZER HELPER RN. DAUGHTER AT BEDSIDE. PATIENT REPORTING SHE WAS ABLE TO GET SOME SLEEP LAST NIGHT AND THE MORPHINE IS HELPING WITH HER SOB. REPORTS NO PAIN AT THIS TIME. DEBORA DÍAZ UPDATED. [facility]
--- NOTE | 2017-06-08 08:13 | NUR ---
PT REFUSED MORNING TREATMENTS SHE WANTED TO VISIT WITH HER FAMILY AND SHE JUST HAD A BREATHING TREATMENT "ABOUT AN HOUR AGO" PER PT. NO MEDS GIVEN AT THIS TIME. WILL RE-CHECK PATIENT PERIODICALLY AND GIVE BREATHING TREATMENT IF NEEDED.
--- NOTE | 2017-06-08 09:59 | NUR ---
PT IN BED AT THE SIDE OF THE BED. VITALS AND I AND O AM CARE DONE
--- NOTE | 2017-06-08 10:42 | NUR ---
PT SITTING UP IN BED. FAMILY IN ROOM. LABORED BREATHING BUT NO RESPIRATORY DISTRESS. PATIENT SEEMS CALM AND RELAXED. 3L O2 IN PLACE. CALL [facility] WITHIN REACH. STUDENT NURSE AT BEDSIDE. NO OTHER NEEDS A THIS TIME.
--- NOTE | 2017-06-08 10:59 | NUR ---
PT AM CARE. IN CHAIR. CALL LIGHT IN REACH.
--- NOTE | 2017-06-08 12:26 | NUR ---
PT LEANING BACK IN BED. 3L O2 NC IN PLACE. CLAIM TRAINEE DC'D PER DR TURNER. SLIGHT DRY COUGH. PAIN IN THROAT FROM COUGHING. MARY ANN TRIED. CALL [facility] WITHIN REACH. NO OTHER NEEDS AT THIS TIME. BREATHING TREATMENT SCHEDULED SOON.
--- NOTE | 2017-06-08 13:14 | NUR ---
Heart failure- Patient able to verbalize diet change realizations. Discussed family support. Will hold cardiac rehab program until approved by PCP to restart.
--- NOTE | 2017-06-08 15:26 | NUR ---
PATEINT UP IN CHAIR. RESPIRATORY THERAPY AT BEDSIDE EDUCATING ON HOME BIPAP. PATIENT IS ON 3L NC. FAMILY AT BEDSIDE. PATIENT IS HAVING LABORED BREATHING. NOT IN DISTRESS THOUGH. UP TO RESTROOM WITH 1PA TOLLERATED WELL. CALL LIGHT WITHIN REACH. PERSONAL ITEMS AT BEDSIDE.
--- NOTE | 2017-06-08 18:46 | NUR ---
UP IN CHAIR MOST DAY. CANT LAY DOWN. RESPIRATORY THERAPY EDUCATED ON BIPAP. MORPHINE CHANGED TO 1MG Q3H PRN. 3L NC. 3L ON BIPAP. TELE DC'D. LAST MORPHINE GIVEN @ 1400. SOLUMEDROL IV. AND NASTATIN. BNP WAS 1470 TODAY. TRAZIDONE FOR BEDTIME. 1PA WITH FWW. CARDIAC DIET. DAILY WEIGHTS.
--- NOTE | 2017-06-08 18:48 | NUR ---
PT IN BED. TOOK GARBAGE OUT. VITALS AND I AND O DONE
--- NOTE | 2017-06-08 20:00 | NUR ---
ROUNDED CHARGE. PATIENT IS SITTING IN RECLINER. PATIENT DENIES ANY COMMENTS, QUESTIONS, OR CONCERNS. NO NEEDS NOTED.
--- NOTE | 2017-06-08 21:43 | NUR ---
pt sitting up in chair. very good spirits. alert and oriented x4. reports feeling "much better." pt complains of sore throat, gave cepocol lozenge, and placed humidity on o2. pts family left for the night.
--- NOTE | 2017-06-08 22:09 | NUR ---
1 PERSON STANDBY ASSIST PATIENT FROM CHAIR TO THE BATHROOM THEN TO BED USING OWN WALKER. CALLED RT TO SET UP PATIENT'S OWN BIPAP. RT WAS IN ROOM WITH PATIENT.
--- NOTE | 2017-06-08 23:43 | NUR ---
PT APPEARS TO BE SLEEPING. EYES ARE CLOSED. LIGHTS AND TV OFF IN ROOM. PERSONAL CPAP IN PLACE.
--- NOTE | 2017-06-09 01:36 | NUR ---
pt appears to be sleeping. nc in place. o2 sat 96%.
--- NOTE | 2017-06-09 06:29 | NUR ---
NEW IV PLACE IN PATIENTS RIGHT FOREARM. PATIENT TOLERATED ACTIVITY WELL. PATIENT GIVEN PRN MORPHINE FOR SOB. PATIENT CONTINUES TO REST IN BED WATCHING TV. PATIENT DENIES ANY FURTHER NEEDS AT THIS TIME. CALL LIGHT IN REACH.
--- NOTE | 2017-06-09 08:16 | NUR ---
REPORT RECEIVED FROM SHABNAM RN, PATIENT SITTING UP IN BED EATING BREAKFAST, PATIENT IS ALERT AND ORIENTED AND HAS NO C/O SOB AT THIS TIME. AM MEDICATION GIVEN TO THE PATIENT AT THIS TIME.
--- NOTE | 2017-06-09 09:37 | NUR ---
VS AND I&O'S TAKEN AND DOCUMENTED. PT HAS NO NEEDS AT THIS TIME. INFORMED PT TO CALL IF SHE NEEDS ANYTHING. CALL LIGHT IS IN REACH.
--- NOTE | 2017-06-09 10:08 | NUR ---
PATIENT IV SOLUMEDROL GIVEN AT THIS TIME
--- NOTE | 2017-06-09 11:23 | NUR ---
PATIENT WAS SOB WHEN AMBULATING BACK TO BED FROM THE BATHROOM, PATIENT REQUESTING MORPHINE FOR SOB AT THIS TIME
--- NOTE | 2017-06-09 11:47 | NUR ---
PATIENT FEELING BETTER AFTER RECEIVING MORPHINE FOR C/O SHORTNESS OF BREATH, PATIENT IS NOW SITTING UP AT THE SIDE OF THE BED EATING HER LUNCH. SHE REMAINS ON OXYGEN AT 3L PER NC.
--- NOTE | 2017-06-09 13:19 | NUR ---
Inpatient visit. Provided list of caregivers and caregiver tool guide. Patient referred to [facility].
--- NOTE | 2017-06-09 13:40 | NUR ---
PATIENT ATE 100% OF HER LUNCH, SCHEDULED MEDICATION GIVEN AT THIS TIME
--- NOTE | 2017-06-09 14:38 | NUR ---
VS AND I&O'S TAKEN AND DOCUMENTED. PT REFUSED BB AND SHOWER, STATES TODAY IS HER LAZY DAY AND WOULD LIKE TO WAIT FOR A BATH TOMORROW. PT WAS GIVEN A WARM WASH CLOTH. PT HAS NO OTHER NEEDS AT THIS TIME. INFORMED PT TO CALL IF SHE THINKS OF ANYTHING. CALL LIGHT IS IN REACH.
--- NOTE | 2017-06-09 15:45 | NUR ---
DOCTOR HURTADO IN THE ROOM TO SEE THE PATIENT AT THIS TIME, PATIENT SCHEDULED MEDICATION GIVEN AT THIS TIME
--- NOTE | 2017-06-09 16:53 | NUR ---
PATIENT GIVEN SCHEDULED MEDICATION AT THIS TIME
--- NOTE | 2017-06-09 17:23 | NUR ---
PATIENT HAS BEEN A STANDBY ASSIST TODAY UP TO THE BATHROOM. SHE HAS HAD GOOD URINE OUTPUT AFTER RECEIVING 40MG OF LASIX TWICE TODAY. PATIENT IS ALERT AND ORIENTED AND HAS REMAINED ON OXYGEN AT 3L PER NC TODAY. SHE USES OXYGEN AT HOME CHRONICALLY. SHE HAS A CPAP MACHINE IN HER ROOM FROM HOME BUT WILL NEED TO HAVE A SLEEP STUDY UPON D/C TO GET A NEW MACHINE THAT WORKS PROPERLY FOR HER. PATIENT HAS SOME EDEMA PRESENT TO HER LEGS 1+.
--- NOTE | 2017-06-09 19:05 | NUR ---
RECEIVED REPORT FROM DAY SHIFT RN. PATIENT IS SITTING ON THE EDGE OF THE BED. PATIENT IS VISITING WITH FAMILY. PATIENT DENIES ANY NEEDS AT THIS TIME. CALLL LIGHT IN REACH.
--- NOTE | 2017-06-09 20:50 | NUR ---
PATIENT IS SITTING ON THE EDGE OF THE BED VISITING WITH FAMILY. PATIENTS EVENING MEDICATIONS GIVEN PER ORDER. PATIENT ASSESMENT COMPLETED. PATIENT REMAINS ON 3L VIA NC. PATIENT DENIES ANY SOB OR ANXIETY AT THIS TIME. PATIENTS VITALS TAKEN AND RECORDED. PATIENT DENIES ANY FURTHER NEEDS AT THIS TIME. CALL LIGHT IN REACH.
--- NOTE | 2017-06-09 22:36 | NUR ---
PATIENTS FAMILY HAS LEFT FOR THE EVENING. PATIENT IS NOW RESTING IN BED. PATIENT REMAINS ON 3L VIA NC. NO SOB NOTED. NO NEEDS NOTED CALL LIGHT IN REACH.
--- NOTE | 2017-06-10 00:34 | NUR ---
PATIENT IS RESTING IN BED WITH EYES CLOSED, RR 17. CALL LIGHT IN REACH.
--- NOTE | 2017-06-10 02:01 | NUR ---
PATIENT AWOKEN WHEN THE ROOM WAS ENTERED. PATIENT DENIES ANY SOB. NO NEEDS NOTED AT THIS TIME. CALL LIGHT IN REACH.
--- NOTE | 2017-06-10 04:17 | NUR ---
RT IN ROOM. NEB BEING ADMINISTERED.
--- NOTE | 2017-06-10 04:56 | NUR ---
PATIENT RESTED WELL THROUGHOUT THE SHIFT. PATIENT IS ON A CARDIAC DIET AND TOLERATING IT WELL, NO NAUSEA NOTED. PATIETN IS ON 3L VIA NC. PATIENT REFUSED TO WEAR HOME BIPAP. PATIENT IS A SBA WITH PASHA. PATIETN IS SL AND IV FLUSHES WELL. PATIENT HAS SCHEDULED NEBS, NO PRN GIVEN. PATIENT DENIED ANY SOB. PATIENT IS AAOX3, AND USES CALL LIGHT APPROPRIATELY.
--- NOTE | 2017-06-10 05:47 | NUR ---
VITALS AND I&OS DONE AND CHARTED.
--- NOTE | 2017-06-10 06:10 | NUR ---
PATIENTS VITALS TAKEN AND RECORDED. PATIENT IS RESTING IN BED. PATIENT DENIES ANY SOB AT THIS TIME. PATIENT DENIES ANY NEEDS AT THIS TIME. PATIENTS DAILY WEIGHT TAKEN AND RECORDED. CALL LIGHT IN REACH.
[2017-06-10] MEDS ORDERED: CHOLESTYRAMINE P4 GM PO (11:10)
[2017-06-10] MEDS ORDERED: DILTIAZEM 24HR120 MG PO (11:12)
--- NOTE | 2017-06-10 12:49 | NUR ---
HELPED PATIENT TAKE A SHOWER. SHE WASHED HER HAIR. FAMILY WILL BRING UP HER CLOTHES BEFORE SHE GOES HOME. TOOK IV OUT. SHE IS NOW SITTING UP IN CHAIR.
[2017-06-10] MEDS ORDERED: NYSTATIN100000 UN1 PO (13:48)
--- NOTE | 2017-06-10 14:30 | NUR ---
DISCUSSED DISCHARGE INSTRUCTIONS IN DEPTH AND FOLLOW UP CARE POST DISCHARGE. PROVIDED PATIENT WITH CHF LOGS AND INFORMATION ABOUT SYMPTOMS TO BE CONCERNED ABOUT. NO COMPLAINTS OF PAIN. PATIENT REQUESTED [facility] SWISH AND SPIT, DR. GILBERT ORDERED AND SENT TO PHARMACY. PATIENT ABLE TO TEACH BACK SIGNS AND SYMPTOMS.
--- NOTE | 2017-06-22 13:20 | NUR ---
Heart failure Discharge follow up call #2- Chio reports feeling well. Taking medications as prescribed. Daughters are assisting her with care at home. Did have some pain in kidney area with ambulation yesterday. States urine out put was WNL and the pain has improved today. Agrees to discuss with Dr Ardon during her appointment tomorrow. Weight as DC was 186lb, today's home weight down to 182.3lb. She will ask Dr Ardon about clearance to continue cardiac rehab.
[2017-06-29] MEDS ORDERED: ANORO ELLIPTA1 EACH INH (09:24)
[2017-06-29] MEDS ORDERED: PULMICORT FLE180 MCG INH (09:24)
[2017-06-29] MEDS ORDERED: FLUTICASONE PRO16 GM NAS (09:28)
[2017-08-24] MEDS ORDERED: BUDESONIDE0.5 MG/2 M INH (10:12)
[2017-08-24] MEDS ORDERED: BROVANA15 MCG/2 M INH (10:13)
== END 2017-06-10 14:30 | disposition home or self-care (01) | DRG 292 ==
LOC: ED 03:33 → MS 03:35
PROVIDERS: ADMIT Internal Medicine
DX: I11.0 Hypertensive heart disease with heart failure (principal); J44.1 Chronic obstructive pulmonary disease with (acute) exacerbation; B37.0 Candidal stomatitis; I50.33 Acute on chronic diastolic (congestive) heart failure; I48.2 Chronic atrial fibrillation; E79.0 Hyperuricemia without signs of inflammatory arthritis and tophaceous disease; F43.21 Adjustment disorder with depressed mood; R10.9 Unspecified abdominal pain; R19.7 Diarrhea, unspecified; F51.04 Psychophysiologic insomnia; Z87.891 Personal history of nicotine dependence; Z96.651 Presence of right artificial knee joint; I20.9 Angina pectoris, unspecified
CPT/HCPCS: 36415; 71045; 80048; 80053; 80069; 83735; 83880; 84100; 84484; 85025; 85610; 93005; 93010; 94640; 94644; 94660; 94667; 94668; 94762; J2270; J2930; J3475; J7512